=== PATIENT | male | born 1935 | race Hispanic/Latino ===

== ENCOUNTER 2020-05-14 05:43 | Day surgery (SDC) | payer MEDICARE ==
[2020-05-10 10:57] LABS: BASOPHILS % (AUTO) 0.4 % (0.0-5.0); EOSINOPHILS % (AUTO) 0.4 % (0.0-8.0); HEMATOCRIT 35.9 % (42-54); LYMPHOCYTES % (AUTO) 20.7 % (21.0-51.0); MEAN CORPUSCULAR HEMOGLOBIN 31.5 pg (27.0-33.0); MEAN CORPUSCULAR HGB CONC 31.2 g/dL (32.0-36.0); MEAN CORPUSCULAR VOLUME 101.1 fL (79-99); MONOCYTES % (AUTO) 24.8 % (3.0-13.0); NEUTROPHILS % (AUTO) 50.1 % (40.0-77.0); PLATELET COUNT (AUTO) 536 K/uL (130-400); RED BLOOD CELL COUNT(AUTO) 3.55 MIL/uL (4.50-6.20); RED CELL DISTRIBUTION WIDTH 14.1 % (11.0-15.5); WHITE BLOOD COUNT (AUTO) 8.1 K/uL (4.8-10.8)
[2020-05-10 11:04] LABS: CREATININE 1.5 mg/dL (0.5-1.5); POTASSIUM 4.6 mmol/L (3.5-5.1)
[2020-05-10 15:26] VITALS: BP 169/58
[~2020-05-14] VITALS: Ht 175.3 cm; Wt 71.2 kg
[2020-05-14] VITALS (22 sets, daily range): BP systolic 89–158; BP diastolic 36–69
[~2020-05-14 05:43] MED LIST: ASPI-1197 PO; ATOR10TA69 PO; FOLI1 PO; ISOS30TA92 PO; LOSA25TA41 PO
[2020-05-14] MEDS ORDERED: SODIUM CHLORIDE 0.9% 1000ML 1,000 ML IV ONE (06:14)
[2020-05-14] MEDS ORDERED: CEFAZOLIN SODIUM 1 GM VIAL ONE (06:14)
[2020-05-14] MEDS ORDERED: BUPIVACAINE/PF 0.5% 30ML VIAL ONE (07:21)
[2020-05-14] MEDS ORDERED: SUCCINYLCHOLINE 200MG/10ML SYR ONE (07:24)
[2020-05-14] MEDS ORDERED: GLYCOPYRROLATE 1 MG/5 ML SYRINGE ONE (07:24)
[2020-05-14] MEDS ORDERED: PROPOFOL 10 MG/ML 20ML VIAL IV ONE (07:24)
[2020-05-14] MEDS ORDERED: ONDANSETRON HCL 4 MG/2 ML VIAL ONE (07:24)
[2020-05-14] MEDS ORDERED: ROCURONIUM 10MG/1ML SYR 10 MG/ML ML ONE ×2 (07:24→09:13)
[2020-05-14] MEDS ORDERED: DEXAMETHASONE SOD PHOSPHATE 10MG/ML 1ML VIAL ONE (07:24)
[2020-05-14] MEDS ORDERED: LIDOCAINE PF 2% 5ML ABBOJECT ONE (07:24)
[2020-05-14] MEDS ORDERED: MIDAZOLAM HCL 1 MG/ML 2ML VIAL ONE (07:24)
[2020-05-14] MEDS ORDERED: NEOSTIGMINE 5MG/5ML SYR IV ONE (07:24)
[2020-05-14] MEDS ORDERED: FENTANYL CITRATE PF 50 MCG/1 ML 2ML VIAL ONE ×2 (07:25→09:02)
[2020-05-14] MEDS ORDERED: MEPERIDINE-PF 25 MG/ML SYG ONE (07:29)
[2020-05-14] MEDS ORDERED: PHENYLEPHRINE HCL 10 MG/ML 1ML VIAL IV ONE (07:58)
[2020-05-14] MEDS ORDERED: EPHEDRINE SULFATE 50 MG/ML AMPULE ONE (08:12)
[2020-05-14] MEDS ORDERED: KETOROLAC TROMETHAMINE 30MG/ML ONE (09:47)
[2020-05-14] MEDS ORDERED: SIMETHICONE 80 MG TAB.CHEW ONE (11:33)
== END 2020-05-14 15:10 | disposition home or self-care (01) ==
LOC: DAH 05:43
PROVIDERS: ATTEND Surgery
DX: K40.20 Bilateral inguinal hernia, without obstruction or gangrene, not specified as recurrent (principal); I10 Essential (primary) hypertension; E11.9 Type 2 diabetes mellitus without complications; Z90.49 Acquired absence of other specified parts of digestive tract; Z87.891 Personal history of nicotine dependence; Z79.899 Other long term (current) drug therapy; Z20.828 Contact with and (suspected) exposure to other viral communicable diseases
CPT/HCPCS: 36415; 49650; 71046; 80048; 82948 ×2; 85025; 93005; A4215; A4221; A4222; A4223; A4600; A4649; A4663; A4930 ×2; A6260; C1769; C1781 ×2; C9803; G0168; J0330; J0690; J1100; J1885; J2001; J2175; J2250; J2370; J2405; J2704; J2710; J3010 ×2; J3490 ×3; J7030 ×2; U0003